=== PATIENT | male | born 1950 | race Caucasian/White ===

== ENCOUNTER 2020-03-21 10:29 | Outpatient (RCR) | payer MEDICARE, SELFPAY ==
[2020-03-21] MEDS: Heparin 500 UNITS/5 ML SYRINGE IVP (10:46)
[2020-03-21] MEDS: Normal Saline Flush 10 ML SYR IVP (10:47)
[2020-03-21 10:59] LABS: Abs Immature Grans 0.02 k/cumm (0.0-0.09); Absolute Basophil Count 0.03 k/cumm (0.0-0.2); Absolute Eosinophil Count 0.14 k/cumm (0.0-0.7); Absolute Lymphocyte Count 0.42 k/cumm (1.2-3.4); Absolute Monocyte Count 0.21 k/cumm (0.11-0.7); Absolute Neutrophil Count 3.68 k/cumm (1.2-6.7); Basophils % 0.7; Eosinophils % 3.1; Immature Grans % 0.4 %; Lymphocytes % 9.3; Mean Corp. HGB Concentration 34.1 g/dL (32.0-36.0); Mean Corpuscular Hemoglobin 29.2 pg (27.0-33.0); Mean Corpuscular Volume 85.4 fL (80-95); Mean Platelet Volume 9.4 fL (8.0-11.0); Monocytes % 4.7; Neutrophils % 81.8; Platelet Count 177 x1000/uL (130-400); RBC Distribution Width 12.8 % (11.8-14.1)
[2020-03-21 11:14] LABS: ALT 24 U/L (16-63); AST 19 U/L (15-37); Albumin 3.3 g/dL (3.4-5.0); Alkaline Phosphatase 88 U/L (46-116); Anion Gap 7.5 mmol/L (3-11); BUN 28 mg/dL (7-18); Bilirubin, Total 0.5 mg/dL (0.2-1.0); CO2 26.5 mmol/L (21.0-32.0); CREATININE 1.75 mg/dL (0.70-1.30); Calcium 9.2 mg/dL (8.5-10.1); Chloride 102 mmol/L (98-107); Estimated GFR 38.96 (mL/min/1.73m2); Glucose 104 mg/dL (74-106); Potassium 4.1 mmol/L (3.5-5.1); Sodium 136 mmol/L (136-145); Total Protein 6.9 g/dL (6.4-8.2)
== END 2020-03-23 23:59 | disposition home or self-care (01) ==
LOC: INF 10:29
PROVIDERS: Visit Provider Internal Medicine
DX: C60.9 Malignant neoplasm of penis, unspecified (principal); Z45.2 Encounter for adjustment and management of vascular access device
CPT/HCPCS: 36591; 80053; 85025

== ENCOUNTER 2020-04-18 01:18 | Outpatient (RCR) | payer MEDICARE, SELFPAY ==
[2020-03-28] MEDS: Normal Saline Flush 10 ML SYR IVP (08:29)
[2020-03-28] MEDS: Heparin 500 UNITS/5 ML SYRINGE IV (08:29)
[2020-03-28 08:43] LABS: Abs Immature Grans 0.01 k/cumm (0.0-0.09); Absolute Basophil Count 0.02 k/cumm (0.0-0.2); Absolute Eosinophil Count 0.13 k/cumm (0.0-0.7); Absolute Lymphocyte Count 0.27 k/cumm (1.2-3.4); Absolute Monocyte Count 0.45 k/cumm (0.11-0.7); Absolute Neutrophil Count 2.09 k/cumm (1.2-6.7); Basophils % 0.7; Eosinophils % 4.4; HCT 39.2 % (40.0-50.0); HGB 13.3 g/dL (13.5-17.5); Immature Grans % 0.3 %; Lymphocytes % 9.1; Mean Corp. HGB Concentration 33.9 g/dL (32.0-36.0); Mean Corpuscular Hemoglobin 29.1 pg (27.0-33.0); Mean Corpuscular Volume 85.8 fL (80-95); Mean Platelet Volume 9.2 fL (8.0-11.0); Monocytes % 15.2; Neutrophils % 70.3; Platelet Count 135 x1000/uL (130-400); RBC 4.57 m/cumm (4.50-6.00); RBC Distribution Width 12.9 % (11.8-14.1); White Blood Cell Count 2.97 k/cumm (4.4-10.8)
[2020-03-28 09:03] LABS: ALT 36 U/L (16-63); AST 28 U/L (15-37); Albumin 3.2 g/dL (3.4-5.0); Alkaline Phosphatase 106 U/L (46-116); Anion Gap 7.8 mmol/L (3-11); BUN 25 mg/dL (7-18); Bilirubin, Total 0.4 mg/dL (0.2-1.0); CO2 26.2 mmol/L (21.0-32.0); CREATININE 2.01 mg/dL (0.70-1.30); Calcium 8.5 mg/dL (8.5-10.1); Chloride 106 mmol/L (98-107); Glucose 76 mg/dL (74-106); Potassium 3.9 mmol/L (3.5-5.1); Sodium 140 mmol/L (136-145); Total Protein 6.9 g/dL (6.4-8.2)
[2020-03-29] MEDS: Heparin 500 UNITS/5 ML SYRINGE IV (08:30)
[2020-03-29] MEDS: Normal Saline Flush 10 ML SYR IVP (08:30)
[2020-03-29 10:21] LABS: CREATININE 1.71 mg/dL (0.70-1.30); Estimated GFR 40.01 (mL/min/1.73m2)
[2020-04-04] MEDS: Heparin 500 UNITS/5 ML SYRINGE IV (12:10)
[2020-04-04] MEDS: Normal Saline Flush 10 ML SYR IVP (12:10)
[2020-04-04 12:31] LABS: Abs Immature Grans 0.02 k/cumm (0.0-0.09); Absolute Basophil Count 0.04 k/cumm (0.0-0.2); Absolute Eosinophil Count 0.18 k/cumm (0.0-0.7); Absolute Monocyte Count 0.49 k/cumm (0.11-0.7); Absolute Neutrophil Count 2.13 k/cumm (1.2-6.7); Basophils % 1.3; Eosinophils % 5.7; HCT 38.1 % (40.0-50.0); Immature Grans % 0.6 %; Lymphocytes % 9.5; Mean Corp. HGB Concentration 34.1 g/dL (32.0-36.0); Mean Corpuscular Hemoglobin 29.3 pg (27.0-33.0); Mean Platelet Volume 9.6 fL (8.0-11.0); Monocytes % 15.5; Neutrophils % 67.4; Platelet Count 127 x1000/uL (130-400); RBC 4.43 m/cumm (4.50-6.00); RBC Distribution Width 13.3 % (11.8-14.1); White Blood Cell Count 3.16 k/cumm (4.4-10.8)
[2020-04-04 12:37] LABS: ALT 42 U/L (16-63); AST 36 U/L (15-37); Albumin 3.1 g/dL (3.4-5.0); Alkaline Phosphatase 85 U/L (46-116); Anion Gap 7.3 mmol/L (3-11); BUN 24 mg/dL (7-18); Bilirubin, Total 0.3 mg/dL (0.2-1.0); CO2 27.7 mmol/L (21.0-32.0); CREATININE 2.07 mg/dL (0.70-1.30); Calcium 9.2 mg/dL (8.5-10.1); Chloride 103 mmol/L (98-107); Estimated GFR 32.09 (mL/min/1.73m2); Glucose 98 mg/dL (74-106); Potassium 3.8 mmol/L (3.5-5.1); Sodium 138 mmol/L (136-145); Total Protein 6.8 g/dL (6.4-8.2)
[2020-04-11] MEDS: Normal Saline Flush 10 ML SYR IVP (09:40)
[2020-04-11 10:14] LABS: Abs Immature Grans 0.02 k/cumm (0.0-0.09); Absolute Basophil Count 0.01 k/cumm (0.0-0.2); Absolute Eosinophil Count 0.19 k/cumm (0.0-0.7); Absolute Lymphocyte Count 0.32 k/cumm (1.2-3.4); Absolute Monocyte Count 0.31 k/cumm (0.11-0.7); Absolute Neutrophil Count 3.75 k/cumm (1.2-6.7); Basophils % 0.2; Eosinophils % 4.1; HCT 38.3 % (40.0-50.0); HGB 13.1 g/dL (13.5-17.5); Immature Grans % 0.4 %; Mean Corp. HGB Concentration 34.2 g/dL (32.0-36.0); Mean Corpuscular Hemoglobin 29.5 pg (27.0-33.0); Mean Corpuscular Volume 86.3 fL (80-95); Mean Platelet Volume 8.9 fL (8.0-11.0); Monocytes % 6.7; Neutrophils % 81.6; Platelet Count 181 x1000/uL (130-400); RBC 4.44 m/cumm (4.50-6.00); RBC Distribution Width 14.6 % (11.8-14.1)
[2020-04-11 10:32] LABS: ALT 51 U/L (16-63); AST 37 U/L (15-37); Alkaline Phosphatase 81 U/L (46-116); Anion Gap 6.8 mmol/L (3-11); BUN 19 mg/dL (7-18); Bilirubin, Total 0.4 mg/dL (0.2-1.0); CO2 27.2 mmol/L (21.0-32.0); CREATININE 1.89 mg/dL (0.70-1.30); Calcium 8.9 mg/dL (8.5-10.1); Chloride 104 mmol/L (98-107); Estimated GFR 35.65 (mL/min/1.73m2); Glucose 96 mg/dL (74-106); Potassium 4.1 mmol/L (3.5-5.1); Sodium 138 mmol/L (136-145); Total Protein 6.7 g/dL (6.4-8.2)
== END 2020-04-23 23:59 | disposition home or self-care (01) ==
LOC: INF 01:18
PROVIDERS: PCP Family Medicine; Visit Provider Internal Medicine
DX: C60.9 Malignant neoplasm of penis, unspecified (principal); Z45.2 Encounter for adjustment and management of vascular access device; E86.0 Dehydration
CPT/HCPCS: 36591; 80053; 82565; 85025

== ENCOUNTER 2020-04-25 02:59 | Outpatient (RCR) | payer MEDICARE, SELFPAY | END 2020-05-23 23:59 | disposition home or self-care (01) | LOC: INF 02:59 | PROVIDERS: PCP Family Medicine; Visit Provider Internal Medicine | DX: R69 Illness, unspecified (principal) ==

== ENCOUNTER 2020-08-08 01:00 | Outpatient (RCR) | payer MEDICARE, SELFPAY ==
[2020-08-08 13:54] LABS: Abs Immature Grans 0.05 10^3/uL (0.0-0.06); Absolute Basophil Count 0.05 10^3/uL (0.0-0.2); Absolute Eosinophil Count 0.24 10^3/uL (0.0-0.7); Absolute Lymphocyte Count 0.29 10^3/uL (1.2-3.4); Absolute Monocyte Count 0.44 10^3/uL (0.1-0.8); Absolute Neutrophil Count 3.62 10^3/uL (1.2-6.7); Basophils % 1.1; Eosinophils % 5.1; HCT 38.8 % (40.0-50.0); HGB 12.9 g/dL (13.5-17.5); Immature Grans % 1.1; Lymphocytes % 6.2; MCH 29.8 pg (27.0-33.0); MCHC 33.2 % (32.0-36.0); MCV 89.6 fL (80-95); Monocytes % 9.4; Neutrophils % 77.1; Nucleated RBC 0 %; Platelet Count 216 10^3/uL (130-400); RBC 4.33 10^6/uL (4.36-5.78); RDW 11.9 % (11.8-14.1); RDW-SD 38.5 fL; WBC 4.69 10^3/uL (4.4-10.8)
[2020-08-08 14:02] LABS: ALT 13 U/L (16-63); AST 13 U/L (15-37); Albumin 2.8 g/dL (3.4-5.0); Alkaline Phosphatase 127 U/L (46-116); Anion Gap 6.9 mmol/L (3-11); BUN 29 mg/dL (7-18); Bilirubin, Total 0.2 mg/dL (0.2-1.0); CO2 28.1 mmol/L (21.0-32.0); CREATININE 2.06 mg/dL (0.70-1.30); Calcium 9.2 mg/dL (8.5-10.1); Chloride 104 mmol/L (98-107); Estimated GFR 32.18 (mL/min/1.73m2); Glucose 86 mg/dL (74-106); Potassium 4.2 mmol/L (3.5-5.1); Sodium 139 mmol/L (136-145); Total Protein 6.7 g/dL (6.4-8.2)
== END 2020-08-23 23:59 | disposition home or self-care (01) ==
LOC: INF 01:00
PROVIDERS: Internal Medicine; PCP Family Medicine; Visit Provider Internal Medicine Hematology & Oncology
DX: C60.9 Malignant neoplasm of penis, unspecified (principal)
CPT/HCPCS: 36415; 80053; 85025

== ENCOUNTER 2025-09-05 21:03 | Outpatient (REF) | payer MEDICARE, SELFPAY ==
[2025-09-05 19:08] LABS: Abs Immature Grans 0.04 10^3/uL (0.0-0.06); HCT 33.5 % (40.0-50.0); HGB 10.0 g/dL (13.5-17.5); Immature Grans % 0.7 %; MCH 25.2 pg (27.0-33.0); MCHC 29.9 % (32.0-36.0); MCV 84 fL (80-95); MPV 10.1 fL (8.0-11.0); Platelet Count 260 10^3/uL (130-400); RBC 3.97 10^6/uL (4.36-5.78); RDW 15.4 % (11.8-14.1); RDW-SD 47.0 fL; WBC 5.63 10^3/uL (4.4-10.8)
[2025-09-05 19:36] LABS: Hemoglobin A1C 5.4 % (<5.7); Iron 42 ug/dL (65-175); Total Iron Binding Capacity 243 ug/dL (250-450); Transferrin Sat 17 % (20-55)
[2025-09-05 20:11] LABS: ALT 27 U/L (16-63); AST 12 U/L (15-37); Albumin 2.7 g/dL (3.4-5.0); Alkaline Phosphatase 197 U/L (46-116); Anion Gap 8.8 mmol/L (3-11); BUN 27 mg/dL (7-18); Bilirubin, Total 0.2 mg/dL (0.2-1.0); CO2 27.2 mmol/L (21.0-32.0); Calcium 8.8 mg/dL (8.5-10.1); Chloride 108 mmol/L (98-107); Estimated GFR 41.78 (mL/min/1.73m2); Ferritin 54 ng/mL (26-388); Glucose 98 mg/dL (74-106); Magnesium 2.0 mg/dL (1.8-2.4); Potassium 4.5 mmol/L (3.5-5.1); Sodium 144 mmol/L (136-145); TSH (W/Ref FT4) 1.70 uIU/mL (0.36-3.74); Total Protein 6.2 g/dL (6.4-8.2); Vitamin B12 305 pg/mL (193-986); Vitamin D 25 Total 23 ng/mL (30-100)
[2025-09-05 20:13] LABS: Folate > 20.0 ng/mL (8.6-20.0)
[2025-09-05 20:31] LABS: NT-proBNP 583 pg/mL (<300)
== END 2025-09-05 21:04 | disposition home or self-care (01) ==
LOC: LBN 21:03
PROVIDERS: PCP Family Medicine; Visit Provider Nurse Practitioner Gerontology
DX: D63.1 Anemia in chronic kidney disease (principal); E87.8 Other disorders of electrolyte and fluid balance, not elsewhere classified; R53.82 Chronic fatigue, unspecified
CPT/HCPCS: 80053; 82306; 82607; 82728; 82746; 83036; 83540; 83550; 83735; 83880; 84443; 85025

== ENCOUNTER 2025-09-30 11:24 | Outpatient (REF) | payer MEDICARE, SELFPAY ==
[2025-09-30 11:43] LABS: Abs Immature Grans 0.08 10^3/uL (0.0-0.06); HCT 35.2 % (40.0-50.0); HGB 10.8 g/dL (13.5-17.5); Immature Grans % 1.1 %; MCH 26.3 pg (27.0-33.0); MCHC 30.7 % (32.0-36.0); MCV 86 fL (80-95); MPV 10.0 fL (8.0-11.0); Platelet Count 216 10^3/uL (130-400); RBC 4.10 10^6/uL (4.36-5.78); RDW 16.6 % (11.8-14.1); RDW-SD 52.0 fL; WBC 7.21 10^3/uL (4.4-10.8)
[2025-09-30 11:56] LABS: ALT 17 U/L (16-63); AST 13 U/L (15-37); Albumin 3.0 g/dL (3.4-5.0); Alkaline Phosphatase 154 U/L (46-116); Anion Gap 7.8 mmol/L (3-11); BUN 33 mg/dL (7-18); Bilirubin, Total 0.2 mg/dL (0.2-1.0); CO2 28.2 mmol/L (21.0-32.0); Calcium 8.8 mg/dL (8.5-10.1); Chloride 107 mmol/L (98-107); Glucose 101 mg/dL (74-106); Potassium 4.1 mmol/L (3.5-5.1); Sodium 143 mmol/L (136-145); Total Protein 6.5 g/dL (6.4-8.2)
== END 2025-09-30 11:25 | disposition home or self-care (01) ==
LOC: LBN 11:24
PROVIDERS: PCP Legal Medicine; Visit Provider Nurse Practitioner Gerontology
DX: I50.9 Heart failure, unspecified (principal); E87.8 Other disorders of electrolyte and fluid balance, not elsewhere classified; D63.1 Anemia in chronic kidney disease
CPT/HCPCS: 80053; 83880; 85025

== ENCOUNTER 2025-11-01 14:24 | Outpatient (CLI) | payer MEDICARE, SELFPAY ==
[2025-11-01 14:12] LABS: Abs Immature Grans 0.03 10^3/uL (0.0-0.06); HCT 35.6 % (40.0-50.0); HGB 10.7 g/dL (13.5-17.5); Immature Grans % 0.5 %; MCH 25.7 pg (27.0-33.0); MCHC 30.1 % (32.0-36.0); MCV 85 fL (80-95); MPV 8.8 fL (8.0-11.0); Platelet Count 238 10^3/uL (130-400); RBC 4.17 10^6/uL (4.36-5.78); RDW 16.0 % (11.8-14.1); RDW-SD 50.7 fL; WBC 6.22 10^3/uL (4.4-10.8)
[2025-11-01 14:37] LABS: ALT 18 U/L (10-49); AST 18 U/L (<34); Albumin 4.1 g/dL (3.2-5.0); Alkaline Phosphatase 152 U/L (46-116); Anion Gap 9.3 mmol/L (3-11); BUN 28 mg/dL (9-23); Bilirubin, Total 0.2 mg/dL (0.2-1.2); CO2 25.7 mmol/L (20.0-31.0); Calcium 9.4 mg/dL (8.3-10.6); Chloride 108 mmol/L (98-107); Glucose 84 mg/dL (74-106); Potassium 3.8 mmol/L (3.5-5.1); Sodium 143 mmol/L (136-145); Total Protein 7.4 g/dL (5.7-8.2)
== END 2025-11-01 14:25 | disposition home or self-care (01) ==
LOC: LBO 14:25
PROVIDERS: PCP Legal Medicine; Visit Provider Nurse Practitioner
DX: C60.9 Malignant neoplasm of penis, unspecified (principal)
CPT/HCPCS: 36415; 80053; 85025